=== PATIENT | female | born 1940 | race Caucasian/White ===

== ENCOUNTER 2018-08-23 13:07 | Inpatient (IN) ==
--- NOTE | 2018-08-23 13:58 | Emergency Department Note ---
Disposition Clinical Impression: Hypoglycemia, Bradycardia, Altered level of consciousness Diabetes Qualifiers: Diabetes mellitus type: type 2 Diabetes mellitus skilled nursing insulin use: with flakeboard line tender use Diabetes mellitus complication status: with other specified complication Qualified Code(s): E11.69 - Type 2 diabetes mellitus with other specified complication Hypothermia Qualifiers: Encounter type: initial encounter Qualified Code(s): T68.XXXA - Hypothermia, initial encounter Disposition: Admitted As Inpatient Condition: Fair Referrals: Portillo Mcmanus MD [Primary Care Provider] - Forms: ED Satisfaction Letter, Work/School Release Time of Disposition: 16:21 General Adult HPI - General Chief complaint: ED General Medical Stated complaint: low blood sugar Time Seen by Provider: 08/23/18 13:10 Nursing Notes Reviewed: Yes Vital Signs Reviewed: Yes - History of Present Illness HPI Narrative: I did see the patient immediately upon arrival and also spoke with the paramedics and the patient was found on her floor at home with a low blood sugar and the paramedics were called when one of her children went to check on her. She is not able to give an adequate history secondary to her altered level of consciousness. She does not know exactly how she got on the floor. She thinks she fell. She denies any pain in the head, neck, chest, abdomen or back. Social history: Is here by self, states lives with her was not home at this time because he is a manager truck Pain Scale: 0 - Related Data Home Medications Medication Instructions Recorded Confirmed Aspirin 81 mg PO DAILY 02/10/16 02/10/16 Cholecalciferol (Vitamin D3) 2,000 unit PO DAILY 02/10/16 02/10/16 [Vitamin D3] Clopidogrel [Plavix] 75 mg PO DAILY 02/10/16 02/10/16 Furosemide [Lasix] 40 mg PO DAILY 02/10/16 02/10/16 Glucagon,Human Recombinant 1 mg IJ ONCE PRN 02/10/16 02/10/16 [Glucagon Emergency Kit] Glucosamine/D3/Boswellia Harriet 1 each PO DAILY 02/10/16 02/10/16 [Osteo Bi-Flex Tablet] Insulin ASPART [Novolog Flexpen] 10 unit SQ TIDWM 02/10/16 02/10/16 Insulin DETEMIR [Levemir Flextouch] 34 unit SQ HS 02/10/16 02/10/16 Multivitamin [Multi-Day Vitamins] 1 each PO DAILY 02/10/16 02/10/16 Previous Rx's Medication Instructions Recorded Atorvastatin [Lipitor] 80 mg PO HS 30 Days tablet 02/13/16 Isosorbide MONOnitrate (24 HR) 30 mg PO DAILY #30 tab.er.24h 02/13/16 [Imdur] Metoprolol [Lopressor] 50 mg PO BID 3 Days tablet 02/13/16 Nitroglycerin 0.4 mg SL Q5MIN PRN #3 tab.subl 02/13/16 Allergies Allergy/AdvReac Type Severity Reaction Status Date / Time No Known Allergies Allergy Verified 02/10/16 16:25 Review of Systems: Constitutional: No fever Vision: No blurred vision ENT: No rhinorrhea Respiratory: No cough Allergic: No allergies : No blood in urine GI: No blood in stool Hematologic: No bruising Dermatologic: No skin rash Musculoskeletal: No pain in the extremities Neuro: No numbness of the extremities Past Medical History - Past Medical History Medical history: Reports: DVT, diabetes, hypertension, renal disease Surgical history: Reports: cholecystectomy Psychiatric history: Reports: no psych history - Social History Smoking Status: Never smoker Smokeless Tobacco Status: No Alcohol use: Reports: none Drug use: Reports: none Physical Exam CONSTITUTIONAL: Breathing comfortably, cool to touch, does not know the day or month or year or where she is HEAD: Normocephalic; atraumatic. EYES: PERRL, no scleral icterus. NOSE: The nose is normal in appearance without rhinorrhea RESP: Normal chest excursion with respiration; breath sounds clear and equal bilaterally; no wheezes, rhonchi, or rales CARD: Regular rhythm, without murmurs, rub or gallop ABD: Non-distended; non-tender, soft,without rigidity, rebound or guarding SKIN: Normal for age and race; warm and dry; no apparent lesions NEUROLOGICAL: Cranial nerves III-XII are intact. Sensory and motor functions are intact. Strength is 5/5 for flexion and extension in all 4 extremities. Finger to nose testing is equal and normal bilaterally. - General General appearance: alert, in no apparent distress Course Vital Signs Temperature 91.3 F L 08/23/18 13:16 Pulse Rate 43 08/23/18 13:16 Respiratory Rate 16 08/23/18 13:16 Blood Pressure 166/70 08/23/18 13:16 O2 Sat by Pulse Oximetry 99 08/23/18 13:16 Temperature 94.0 F L 08/23/18 16:16 Pulse Rate 62 08/23/18 16:16 Respiratory Rate 16 08/23/18 16:16 Blood Pressure 133/55 08/23/18 16:16 O2 Sat by Pulse Oximetry 98 08/23/18 16:16 Oxygen Delivery Oxygen Delivery Room Air Medical Decision Making - MDM Narrative Medical decision making narrative: Patient's confusion is related to the hypoglycemia as well as likely has significant hypothermia and the patient will be admitted to hospital. Labs are pending. I did review her EKG showing sinus bradycardia with a rate of [address] changes. The bradycardia may be related to the hypothermia so we are warming her with warm blankets, bear hugger and we will reassess and watch closely. 1358 I did review the patient's test results. The patient did have a second episode of hypoglycemia and it was difficult to get her temperature up but we did give IV fluids. Patient will be admitted to the hospital. She does not have rhabdomyolysis based on her CPK result. She became hypoglycemic because of not eating or because of too much insulin but as she was found to floor we do not ocampo ve definitive answer on that and some of this can be further evaluated based on her blood sugar fluctuations here in the hospital. 1608 Patient did eat a peanut butter and dry sandwich and drank a glass of orange juice. The most recent temperature was 92.3 so this is improving and this was done 40 minutes ago so will be checked again. She still on the bear hugger. Warm IV fluids. I did speak with the hospitalist Dr. Perla who accepts the patient for admission and does request a chest x-ray which I will do and I will follow-up the results. The patient's heart rate has improved and it was in the 40s initially and now is 63. She is not on a beta elise medication. 1620 - Medical Records Medical records reviewed: Yes I reviewed the patient's medical records. - Lab Data Lab results reviewed: Yes I reviewed the patient's lab results. Result diagrams: 08/23/18 13:55 08/23/18 13:55 Lab Results 08/23/18 08/23/18 08/23/18 Range/Units 13:55 13:55 15:25 WBC 11.9 H (4.3-11.1) K/mcL RBC 5.12 H (3.82-4.97) M/mcL Hgb 14.9 (11.5-15.4) g/dL Hct 45.9 H (35.3-44.9) % MCV 89.6 (83.0-100.0) fL MCH 29.1 (28.0-33.3) pg MCHC 32.5 (31.6-35.5) g/dL RDW 13.5 (11.5-14.5) % Plt Count 295 (140-400) K/mcL MPV 9.2 L (9.4-12.4) fL Sodium 140 (136-145) mEq/L Potassium 3.6 (3.5-5.1) mEq/L Chloride 105 (98-107) mEq/L Carbon Dioxide 28 (23-29) mEq/L BUN 38 H (8-23) mg/dL Creatinine 1.53 H (0.60-1.20) mg/dL Est GFR ( Amer) 40 L (> 60) Est GFR (Non-Af Amer) 33 L (> 60) BUN/Creatinine Ratio 25 (6-26) Glucose 68 L (70-105) mg/dL Calculated Osmolality 297 (280-300) Calcium 10.8 H (8.6-10.3) mg/dL Creatine Kinase 165 (30-223) Units/L Urine Color Yellow (Yellow) Urine Clarity Clear (Clear) Urine pH 7.0 (5.0-8.0) pH Units Ur Specific [place] 1.025 (1.010-1.025) Urine Protein >=300 H (Neg-Trace) mg/dL Urine Glucose (UA) Normal (Normal) mg/dL Urine Ketones Negative (Negative) mg/dL Urine Blood Small H (Negative) Urine Nitrite Negative (Negative) Urine Bilirubin Negative (Negative) Urine Urobilinogen Normal (Normal) mg/dL Ur Leukocyte Esterase Negative (Negative) Urine Microscopic RBC 0-3 (0-3) per hpf Urine Microscopic WBC 0-3 (0-3) per hpf Ur Squamous Epith Cells Many H (None-Few) per lpf Urine Bacteria Many H (None-Few) per hpf Hyaline Casts None Seen (None-Few) per lpf - Radiology Data Radiology results reviewed: Yes I reviewed the patient's radiology results.
[2018-08-23 14:19] LABS: Hematocrit 45.9 % (35.3-44.9); Hemoglobin 14.9 g/dL (11.5-15.4); Mean Corpuscular HGB Conc 32.5 g/dL (31.6-35.5); Mean Corpuscular Hemoglobin 29.1 pg (28.0-33.3); Mean Corpuscular Volume 89.6 fL (83.0-100.0); Mean Platelet Volume 9.2 fL (9.4-12.4); Platelet Count 295 K/mcL (140-400); Red Blood Count 5.12 M/mcL (3.82-4.97); Red Cell Distribution Width 13.5 % (11.5-14.5); White Blood Count 11.9 K/mcL (4.3-11.1)
[2018-08-23 14:28] LABS: Calcium 10.8 mg/dL (8.6-10.3); Potassium 3.6 mEq/L (3.5-5.1)
[2018-08-23] MEDS ORDERED: 0.9 % Sodium Chloride 1,000 ML IVC ONE (14:51)
[2018-08-23 15:32] LABS: Bilirubin,Urine Negative (Negative); Blood,Urine Small (Negative); Clarity,Urine Clear (Clear); Color,Urine Yellow (Yellow); Glucose,Urine (UA) Normal (Normal); Ketones,Urine Negative (Negative); Leukocyte Esterase,Urine Negative (Negative); Nitrite,Urine Negative (Negative); Protein,Urine >=300 mg/dL (Neg-Trace); Specific Gravity,Urine 1.025 (1.010-1.025); Urobilinogen,Urine Normal (Normal)
[2018-08-23 15:52] LABS: Bacteria,Urine Many per hpf (None-Few); Hyaline Casts,Urine None Seen per lpf (None-Few); RBC,Urine 0-3 per hpf (0-3); Squamous Epithelial Cell,Urine Many per lpf (None-Few); WBC,Urine 0-3 per hpf (0-3)
[2018-08-23] MEDS ORDERED: Naloxone 0.4 MG/ML INJ IVP PRN (17:09)
[2018-08-23] MEDS ORDERED: Ondansetron 4 MG/2 ML VIAL IVP PRN (17:09)
--- NOTE | 2018-08-23 17:12 | Internal Med History&Physical ---
Date of Encounter: 08/23/18 Time of Encounter: 17:08 Internal Medicine - H&P: HPI Chief complaint: AMS,HYPOGLYCEMIA Admitted From: Emergency Dept Plans for Post Hospital Care: Home History of present illness: Ms. 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 Some noticed that patient was not making much sense on phone therefore he hung up and drove to mother's house where she was found on the floor with altered sensorium and confusion. He checked blood glucose level and found in the lower 40s therefore he gave 1 dose of glucagon and called EMS. EMS checked blood glucose level and found in 70s. In ER patient was also found to be hypothermic with temperature 91.3 and a started on bear hugger. Patient was also found to be bradycardia heart rate and 40s and eventually started to improve in 60s when temperature is started to improve. Her blood glucose level also started to improve and patient mental status is started to improve it is still feeling tired and slight slow in response. Initial lab with mild leukocytosis and high BUN otherwise not much significant. CT head with no acute finding. Fluid resuscitation was done in t ER. ER physician called on-call hospitalists for the admission with the diagnosis of hypoglycemia, bradycardia and hypothermia. Patient denies fever chills nausea vomiting headache dizziness chest pain shortness of breath cough abdominal pain diarrhea urinary complaint. She does complain of fatigue generalized weakness. She also denies hematemesis melena hemoptysis hematochezia. Patient does complain of recurrent fall and has been getting physiotherapy at home arranged by her primary care physician. Family is willing to talk with social service worker about possible placement Past Med Surg Social Fam HX - Past Medical History Medical history: DVT, diabetes, hypertension, renal disease Additional medical history: tremors, Renal carcinoma. chronic renal insufficiency related to nephroctomy Psychiatric history: no psych history - Past Surgical History Surgical History: cholecystectomy Additional surgical history: nephrectomy- LEFT - Social History Smoking Status: Never smoker Smokeless Tobacco Status: No Alcohol use: none Drug use: none - Family History Father Hx Family Cardiac Disorders: Yes (HEART DISEASE) Internal Medicine - H&P: Meds Aspirin 81 mg PO DAILY 02/10/16 [History] Clopidogrel [Plavix] 75 mg PO DAILY 02/10/16 [History] Furosemide [Lasix] 40 mg PO DAILY 02/10/16 [History] Glucosamine/D3/Boswellia Harriet [Osteo Bi-Flex Tablet] 1 each PO DAILY 02/10/16 [History] Insulin ASPART [Novolog Flexpen] 10 unit SQ TIDWM 02/10/16 [History] Insulin DETEMIR [Levemir Flextouch] 34 unit SQ HS 02/10/16 [History] Isosorbide MONOnitrate (24 HR) [Imdur] 30 mg PO DAILY #30 tab.er.24h 02/13/16 [Rx] Nitroglycerin 0.4 mg SL Q5MIN PRN #3 tab.subl 02/13/16 [Rx] Atorvastatin [Lipitor] 40 mg PO DAILY 08/23/18 [History] Calcitriol [Rocaltrol] 0.25 mcg PO DAILY 08/23/18 [History] Cholecalciferol (D-3) [Vitamin D] 1,000 unit PO DAILY 08/23/18 [History] DULoxetine [Cymbalta] 30 mg PO DAILY 08/23/18 [History] Multivitamin [Daily Multiple Vitamin] 1 each PO DAILY 08/23/18 [History] Propranolol HCl 40 mg PO BID 08/23/18 [History] Allergy/AdvReac Type Severity Reaction Status Date / Time No Known Allergies Allergy Verified 02/10/16 16:25 All Systems PM: A 10-system review of systems was performed and is negative for pertinent fin dings except as documented above in the HPI. - Constitutional Vitals: Temp Pulse Resp BP Pulse Ox 94.0 F L 62 16 133/55 98 08/23/18 16:16 08/23/18 16:16 08/23/18 16:16 08/23/18 16:16 08/23/18 16:16 Exam: General appearance: No acute distress, alert awake oriented to place person and somewhat time-baseline as per family. Family at bedside. Patient appeared pale and tired Head exam: Atraumatic Eye exam: EOMI, PERRLA ENT exam: Moist oral mucosa Neck nontender, supple Respiratory exam: Clear to auscultation bilaterally Cardiovascular exam: Regular rate and rhythm, no systolic murmur Abdominal exam: Soft, nontender, nondistended, positive bowel sounds Extremities exam: No calf tenderness, no pedal edema Present: Skin-no rash, warm, dry, intact Neurological exam: CN II-XII intact, no focal deficits. No facial droop. Normal but slow speech. Internal Med - H&P Results - Labs CBC & Chem 7: 08/23/18 13:55 08/23/18 13:55 Labs: Short CBC 08/23/18 Range/Units 13:55 WBC 11.9 H (4.3-11.1) K/mcL Hgb 14.9 (11.5-15.4) g/dL Hct 45.9 H (35.3-44.9) % Plt Count 295 (140-400) K/mcL BMP 08/23/18 13:55 Sodium 140 Potassium 3.6 Chloride 105 Carbon Dioxide 28 BUN 38 H Creatinine 1.53 H Glucose 68 L Calcium 10.8 H Urine 08/23/18 Range/Units 15:25 Urine Color Yellow (Yellow) Urine Clarity Clear (Clear) Urine pH 7.0 (5.0-8.0) pH Units Ur Specific [place] 1.025 (1.010-1.025) Urine Protein >=300 H (Neg-Trace) mg/dL Urine Glucose (UA) Normal (Normal) mg/dL - Impressions ITS Impressions Head CT 08/23/18 13:58 IMPRESSION: No acute intracranial abnormality. Mild atrophy and chronic white matter changes consistent with small vessel ischemic disease. D/ / Hillary Ramon MD / Hillary Ramon MD Interpreting Provider: Hillary Ramon MD Chest X-Ray 08/23/18 16:11 IMPRESSION: 1. Likely left basilar subsegmental atelectasis versus scarring. 2. Mild enlargement of the cardiopericardial silhouette, likely exaggerated on the basis of AP portable technique. D/ / Murphy Peace / Murphy Peace Interpreting Provider: Murphy Peace - Assessment and Plan (1) Altered level of consciousness Current Visit: Yes Status: Acute Assessment and plan: Improving and almost back to baseline but is still slow. No focal neurological deficit. Most likely due to hypoglycemia. Neuro check. Fall precaution. CT head with no acute finding. (2) Bradycardia Current Visit: Yes Status: Acute Assessment and plan: Could be due to hypothermia. Now improving heart rate. EKG with no acute ST finding. Will order echocardiogram to rule out underlying contributing cardiac factor. Serial troponin. Keep patient in telemetry. Consult cardiology if needed. Hold beta elise for now. IV fluid given in the ER. Last echocardiogram in 2016. (3) Hypoglycemia Current Visit: Yes Status: Acute Assessment and plan: Patient has a history of fluctuating blood glucose level therefore following teacher early childhood development. She had episode of low blood glucose level but not significantly. Patient did not miss any insulin dose but did not eat much food today. Fasting blood glucose level was around 130s today morning. No blood glucose level is improving but is still needs close monitoring. Accu-Chek every 2 hours, hypoglycemia protocol, regular diet. No insulin or sliding scale coverage until persistent blood glucose level more than 150. (4) Leucocytosis Current Visit: Yes Status: Acute Assessment and plan: Mild leukocytosis but no fever. Patient also has hypothermia but denies any systemic sign and symptom. Concern for sepsis but lactate is normal. Blood culture ordered. Will also order pro calcitonin. Will start antibiotic if any concern of infection. Chest x-ray IMPRESSION: 1. Likely left basilar subsegmental atelectasis versus scarring. 2. Mild enlargement of the cardiopericardial silhouette, likely exaggerated on the basis of AP portable technique. Qualifiers: Leukocytosis type: unspecified Qualified Code(s): D72.829 - Elevated white blood cell count, unspecified (5) Diabetes Current Visit: Yes Status: Acute Assessment and plan: Uncontrolled diabetes as per patient with fluctuating blood glucose level. Following teacher early childhood development. Hemoglobin A1c ordered. No insulin coverage ordered at this time Qualifiers: Diabetes mellitus type: type 2 Diabetes mellitus residential insulin use: with residential use Diabetes mellitus complication status: with kidney complications Chronic kidney disease stage: stage 4 (severe) Qualified Code(s): E11.22 - Type 2 diabetes mellitus with diabetic chronic kidney disease; N18.4 - Chronic kidney disease, stage 4 (severe); Z79.4 - senior care (current) use of insulin (6) Hypothermia Current Visit: Yes Status: Acute Assessment and plan: Unknown etiology. Temperature is improving on bear hugger. She presented with low temperature, bradycardia with mild leukocytosis therefore lactate order with normal finding . Qualifiers: Encounter type: initial encounter Qualified Code(s): T68.XXXA - Hypothermia, initial encounter (7) LENNY (obstructive sleep apnea) Current Visit: No Status: Acute Assessment and plan: Does not wear CPAP. (8) Renal malignant neoplasm Current Visit: No Status: Acute Assessment and plan: Status post questionable left nephrectomy. Qualifiers: Laterality: unspecified laterality Qualified Code(s): C64.9 - Malignant neoplasm of unspecified kidney, except renal pelvis (9) Chronic kidney disease, stage IV (severe) Current Visit: No Status: Chronic Assessment and plan: Baseline creatinine between 1.5-1.6. Avoid nephrotoxic drug. Patient follows nephrology on OPD basis. Monitor BMP. (10) Fall Current Visit: Yes Status: Acute Assessment and plan: History of recurrent fall. At present physiotherapy at home. Consulted PT OT and social service worker for discharge plan. Recent fall 1 week ago but did not hit head. Qualifiers: Encounter type: subsequent encounter Qualified Code(s): W19.XXXD - Unspecified fall, subsequent encounter (11) CAD (coronary artery disease) Current Visit: Yes Status: Acute Assessment and plan: History of CAD but no active chest pain. Patient had heart catheter almost 4 years ago but no stent placed. Advise for medical management as per patient and family Qualifiers: Coronary Disease-Associated Artery/Lesion type: unspecified vessel or lesion type [place] vs. transplanted heart: [place] heart Associated angina: without angina Qualified Code(s): I25.10 - Atherosclerotic heart disease of [place] coronary artery without angina pectoris (12) DVT prophylaxis Current Visit: Yes Status: Acute Assessment and plan: SCDs - Time Spent With Patient Total time spent is greater than 50% in coordination of care (as documented) at patient's floor/unit and/or counseling patient: 25 - 35 minutes
[2018-08-23] MEDS ORDERED: Nitroglycerin 0.4 MG TAB.SUBL SL PRN (17:15)
[2018-08-23 17:53] LABS: Prothrombin Time 11.7 Seconds (9.4-12.1)
[2018-08-23 18:31] LABS: Estimated Average Glucose 212 mg/dl
[2018-08-24 05:51] LABS: Basophils % 0.3 %; Eosinophils # 0.1 K/mcL (0.0-0.6); Eosinophils % 2.1 %; Hematocrit 40.9 % (35.3-44.9); Immature Granulocytes % 0.3 % (0-4); Lymphocytes # 1.5 K/mcL (0.6-4.6); Lymphocytes % 21.6 %; Mean Corpuscular HGB Conc 31.5 g/dL (31.6-35.5); Mean Corpuscular Hemoglobin 27.9 pg (28.0-33.3); Mean Corpuscular Volume 88.5 fL (83.0-100.0); Mean Platelet Volume 9.1 fL (9.4-12.4); Monocytes # 0.7 K/mcL (0.0-1.3); Monocytes % 10.3 %; Neutrophils # 4.4 K/mcL (1.6-8.9); Platelet Count 279 K/mcL (140-400); Red Blood Count 4.62 M/mcL (3.82-4.97); Red Cell Distribution Width 13.4 % (11.5-14.5); Segmented Neutrophils % 65.4 %; White Blood Count 6.7 K/mcL (4.3-11.1)
[2018-08-24 05:54] LABS: Hemoglobin 12.9 g/dL (11.5-15.4)
[2018-08-24 06:12] LABS: Calcium 9.6 mg/dL (8.6-10.3); Chol/HDL Ratio 3.6 (0-4.9); Potassium 4.4 mEq/L (3.5-5.1)
[2018-08-24] MEDS ORDERED: *HR* Dextrose 50 % in Water (Syg) 50 ML SYRINGE IVP PRN (07:22)
[2018-08-24] MEDS ORDERED: D5% in Water 1,000 ML IVC PRN (07:22)
[2018-08-24] MEDS ORDERED: Dextrose Gel 15 GM/37.5 ML TUBE PO PRN ×2 (07:22)
[2018-08-24] MEDS ORDERED: NON-FORMULARY MEDICATION 1 EACH EACH (Insulin Aspart [Novolog Flexpen] 10 UNIT) SQ SCH (08:00)
[2018-08-24] MEDS: Insulin LISPRO 300 UNITS/3 ML VIAL SQ SCH ×7 (08:59→22:58)
[2018-08-24] MEDS: Isosorbide MONOnitrate (24 HR) 30 MG TAB.ER.24H PO SCH (09:00)
[2018-08-24] MEDS: Cholecalciferol (D-3) 1,000 UNIT TABLET PO SCH (09:00)
[2018-08-24] MEDS: Aspirin 81 MG TAB.CHEW PO SCH (09:00)
[2018-08-24] MEDS: Multivit/Ca/Min/Fe/FA 1 TAB TABLET PO SCH (09:00)
--- NOTE | 2018-08-24 10:02 | Internal Med Progress Note ---
Hospitalist Progress Note - Encounter Date of Encounter: 08/24/18 Time of Encounter: 10:01 - Subjective Interval History: Patient is still complaining of tiredness and weakness. No episode of hypoglycemia in fact now blood glucose level is running high. Review of the vitals with no bradycardia and normal temperature. Son at bedside. Review the lab with normal white count, crit came up creatinine. Patient denies fever chills nausea vomiting headache dizziness chest pain shortness of breath abdominal pain urinary complaint diarrhea - Exam Vitals: Temp Pulse Resp BP Pulse Ox 98.1 F 79 16 175/69 96 08/24/18 07:20 08/24/18 07:20 08/24/18 07:20 08/24/18 07:20 08/24/18 07:20 Exam: General appearance: No acute distress, alert awake oriented to place person and somewhat time-baseline as per family. Family at bedside. Patient goes to bathroom with assistance Head exam: Atraumatic Eye exam: EOMI, PERRLA ENT exam: Moist oral mucosa Neck nontender, supple Respiratory exam: Clear to auscultation bilaterally Cardiovascular exam: Regular rate and rhythm, no systolic murmur Abdominal exam: Soft, nontender, nondistended, positive bowel sounds Extremities exam: No calf tenderness, no pedal edema Present: Skin-no rash, warm, dry, intact Neurological exam: CN II-XII intact, no focal deficits. No facial droop. Normal speech. - Assessment and Plan (1) Altered level of consciousness Current Visit: Yes Status: Acute Assessment and Plan: Improving and almost back to baseline but is still slow. No focal neurological deficit. Most likely due to hypoglycemia. Neuro check. Fall precaution. CT head with no acute finding. (2) Bradycardia Current Visit: Yes Status: Acute Assessment and Plan: Improved P Could be due to hypothermia. Now improving heart rate. EKG with no acute ST finding. Negative Serial troponin. Keep patient in telemetry. Consult cardiology if needed. Hold beta elise for now. IV fluid given in the ER. Last echocardiogram in 2016. Echocardiogram report- Impressions: LVEF 55-60%. Moderate concentric left ventricular hypertrophy. Moderate left ventricular diastolic dysfunction. The right ventricle was not well visualized but appeared grossly normal in size and function Mild-moderate mitral regurgitation. No evidence of pulmonary hypertension. Left Ventricular Wall Motion: Rest Echo Findings All wall segments showed normal motion. (3) Hypoglycemia Current Visit: Yes Status: Acute Assessment and Plan: Improved. Blood glucose level running high. Patient has a history of fluctuating blood glucose level therefore following tobacco sweeper. She had episode of low blood glucose level but not significantly. Patient did not miss any insulin dose but did not eat much food on the day of admission. (4) Leucocytosis Current Visit: Yes Status: Acute Assessment and Plan: Improved. Mild leukocytosis but no fever. On admission patient had hypothermia but denies any systemic sign and symptom. Concern for sepsis but lactate is normal. Blood culture with no growth. Slight high pro calcitonin. No antibiotic at this time as patient does not appear in sepsis but equivocal lab Chest x-ray IMPRESSION: 1. Likely left basilar subsegmental atelectasis versus scarring. 2. Mild enlargement of the cardiopericardial silhouette, likely exaggerated on the basis of AP portable technique. (5) Diabetes Current Visit: Yes Status: Acute Assessment and Plan: Uncontrolled diabetes as per patient with fluctuating blood glucose level. Following tobacco sweeper. Hemoglobin A1c 9.0. Diabetic diet. Now blood glucose level running high therefore the lower dose of home insulin is started R 20 units daily at bedtime, 10 units Humalog 3 times a day with meal. Low sliding scale coverage. still need close monitoring of blood glucose level. (6) Hypothermia Current Visit: Yes Status: Acute Assessment and Plan: Unknown etiology. Normal body temperature now. In ER used bear hugger. She presented with low temperature, bradycardia with mild leukocytosis (7) LENNY (obstructive sleep apnea) Current Visit: No Status: Acute Assessment and Plan: Does not wear CPAP. (8) Renal malignant neoplasm Current Visit: No Status: Acute Assessment and Plan: Status post questionable left nephrectomy. (9) Chronic kidney disease, stage IV (severe) Current Visit: No Status: Chronic Assessment and Plan: Baseline creatinine between 1.5-1.6. Avoid nephrotoxic drug. Patient follows nephrology on OPD basis. Monitor BMP. (10) Fall Current Visit: Yes Status: Acute Assessment and Plan: History of recurrent fall. At present physiotherapy at home. Consulted PT OT and social work administrator for discharge plan. Recent fall 1 week ago but did not hit head. (11) CAD (coronary artery disease) Current Visit: Yes Status: Acute Assessment and Plan: History of CAD but no active chest pain. Patient had heart catheter almost 4 years ago but no stent placed. Advise for medical management as per patient and family (12) DVT prophylaxis Current Visit: Yes Status: Acute Assessment and Plan: SCDs (13) JULIOCESAR (acute kidney injury) Current Visit: Yes Status: Acute Assessment and Plan: Acute on CK D. Trending up creatinine level. Gentle hydration started. Patient does not appear in volume overloaded. Avoid nephrotoxic drug. Will consult nephrology if needed. (14) Goals of care, counseling/discussion Current Visit: Yes Status: Acute Assessment and Plan: Patient presented with hypothermia, bradycardia, hypoglycemia-improving symptoms but today worsening of creatinine level. Patient still needs close monitoring for 1-2 days. PT OT on board and awaiting for the opinion about placement.. - Time Spent with Patient Total time spent is greater than 50% in coordination of care (as documented) at patient's floor/unit and/or counseling patient: 25 - 35 minutes Plan of Care Discussed with: family Internal Medicine: Result - Labs CBC & Chem 7: 08/24/18 05:29 08/24/18 05:29 Labs: Short CBC 08/23/18 08/24/18 Range/Units 13:55 05:29 WBC 11.9 H 6.7 (4.3-11.1) K/mcL Hgb 14.9 12.9 D (11.5-15.4) g/dL Hct 45.9 H 40.9 (35.3-44.9) % Plt Count 295 279 (140-400) K/mcL Neutrophils # 4.4 (1.6-8.9) K/mcL BMP 08/23/18 08/24/18 13:55 05:29 Sodium 140 139 Potassium 3.6 4.4 Chloride 105 104 Carbon Dioxide 28 29 BUN 38 H 35 H Creatinine 1.53 H 1.74 H Glucose 68 L 289 H Calcium 10.8 H 9.6 Cardiac Enzymes 08/23/18 08/23/18 Range/Units 17:33 22:59 Troponin I < 0.03 < 0.03 (< 0.04) ng/mL Urine 08/23/18 Range/Units 15:25 Urine Color Yellow (Yellow) Urine Clarity Clear (Clear) Urine pH 7.0 (5.0-8.0) pH Units Ur Specific [place] 1.025 (1.010-1.025) Urine Protein >=300 H (Neg-Trace) mg/dL Urine Glucose (UA) Normal (Normal) mg/dL - ABG Interpretation ABG results: PT/INR, D-dimer PT 11.7 Seconds (9.4-12.1) 08/23/18 17:33 - Impressions Impressions Head CT 08/23/18 13:58 IMPRESSION: No acute intracranial abnormality. Mild atrophy and chronic white matter changes consistent with small vessel ischemic disease. D/ / Hillary Ramon MD / Hillary Ramon MD Interpreting Provider: Hillary Ramon MD Chest X-Ray 08/23/18 16:11 IMPRESSION: 1. Likely left basilar subsegmental atelectasis versus scarring. 2. Mild enlargement of the cardiopericardial silhouette, likely exaggerated on the basis of AP portable technique. D/ / Murphy Peace / Murphy Peace Interpreting Provider: Murphy Peace Consult Discharge Plan - Plan Referrals: Portillo Mcmanus MD [Primary Care Provider] - (4) Leucocytosis Qualifiers: Leukocytosis type: unspecified Qualified Code(s): D72.829 - Elevated white blood cell count, unspecified (5) Diabetes Qualifiers: Diabetes mellitus type: type 2 Diabetes mellitus residential insulin use: with residential use Diabetes mellitus complication status: with kidney complications Chronic kidney disease stage: stage 4 (severe) (6) Hypothermia Qualifiers: Encounter type: initial encounter Qualified Code(s): T68.XXXA - Hypothermia, initial encounter (8) Renal malignant neoplasm Qualifiers: Laterality: unspecified laterality Qualified Code(s): C64.9 - Malignant neoplasm of unspecified kidney, except renal pelvis (10) Fall Qualifiers: Encounter type: subsequent encounter Qualified Code(s): W19.XXXD - Unspecified fall, subsequent encounter (11) CAD (coronary artery disease) Qualifiers: Coronary Disease-Associated Artery/Lesion type: unspecified vessel or lesion type [place] vs. transplanted heart: [place] heart Associated angina: without angina Qualified Code(s): I25.10 - Atherosclerotic heart disease of [place] coronary artery without angina pectoris
[2018-08-24] MEDS: 0.9 % Sodium Chloride 1,000 ML IVC SCH (15:31)
--- NOTE | 2018-08-24 16:47 | Electrocardiograph Report ---
[place] [address] Test Date: 2018-08-23 Pat Name: Trisha Marcano Department: EXAM8 Room: 2NE19 Gender: F [facility] Information Specialist: : 1940 Requested By: Fernando Tran Order Number: [id number] Reading MD: Katey Rob Measurements Intervals [place] Rate: 43 P: -12 [place]: 129 QRS: -15 QRSD: 128 T: 1 QT: 538 QTc: 455 Interpretive Statements Sinus bradycardia Probable left ventricular hypertrophy Nonspecific ST-T wave changes Electronically Signed On 08-24-2018 16:45:45 EDT by Katey Rob
[2018-08-24] MEDS ORDERED: NON-FORMULARY MEDICATION 1 EACH EACH (Insulin Detemir [Levemir Flextouch] 20 UNIT) SQ SCH (21:00)
[2018-08-24] MEDS: Insulin DETEMIR 100 UNIT/ML X5UNITS SQ SCH (22:59)
[2018-08-25 01:18] LABS: Basophils % 0.5 %; Eosinophils # 0.2 K/mcL (0.0-0.6); Hemoglobin 12.4 g/dL (11.5-15.4); Immature Granulocytes % 0.3 % (0-4); Mean Corpuscular HGB Conc 31.8 g/dL (31.6-35.5); Mean Corpuscular Hemoglobin 28.1 pg (28.0-33.3); Mean Corpuscular Volume 88.2 fL (83.0-100.0); Mean Platelet Volume 9.2 fL (9.4-12.4); Monocytes # 0.6 K/mcL (0.0-1.3); Monocytes % 10.2 %; Neutrophils # 3.4 K/mcL (1.6-8.9); Platelet Count 263 K/mcL (140-400); Red Blood Count 4.42 M/mcL (3.82-4.97); Red Cell Distribution Width 13.5 % (11.5-14.5); White Blood Count 6.3 K/mcL (4.3-11.1)
[2018-08-25 01:35] LABS: Calcium 8.9 mg/dL (8.6-10.3); Potassium 4.2 mEq/L (3.5-5.1)
[2018-08-25] MEDS: 0.9 % Sodium Chloride 1,000 ML IVC SCH ×2 (05:51→20:02)
[2018-08-25] MEDS: Cholecalciferol (D-3) 1,000 UNIT TABLET PO SCH (08:50)
[2018-08-25] MEDS: Multivit/Ca/Min/Fe/FA 1 TAB TABLET PO SCH (08:51)
[2018-08-25] MEDS: Isosorbide MONOnitrate (24 HR) 30 MG TAB.ER.24H PO SCH (08:51)
[2018-08-25] MEDS: Aspirin 81 MG TAB.CHEW PO SCH (08:51)
[2018-08-25] MEDS: Insulin LISPRO 300 UNITS/3 ML VIAL SQ SCH ×7 (08:56→21:17)
--- NOTE | 2018-08-25 10:24 | Internal Med Progress Note ---
Hospitalist Progress Note - Encounter Date of Encounter: 08/25/18 Time of Encounter: 10:22 - Subjective Interval History: No acute event overnight. Family at bedside. Review the lab with normal white count. Is stable but is still elevated creatinine. Blood glucose level better controlled. Review the vitals. Patient denies fever chills nausea vomiting headache dizziness chest pain cough shortness of breath abdominal pain urinary complaint diarrhea - Exam Vitals: Temp Pulse Resp BP Pulse Ox 97.9 F 81 18 134/58 94 08/25/18 07:16 08/25/18 07:16 08/25/18 07:16 08/25/18 07:16 08/25/18 07:16 Exam: General appearance: No acute distress, alert awake oriented to place person and somewhat time-baseline as per family. Family at bedside. Eye exam: EOMI, PERRLA ENT exam: Moist oral mucosa Neck nontender, supple Respiratory exam: Clear to auscultation bilaterally Cardiovascular exam: Regular rate and rhythm, no systolic murmur Abdominal exam: Soft, nontender, nondistended, positive bowel sounds Extremities exam: No calf tenderness, no pedal edema Present: Skin-no rash, warm, dry, intact Neurological exam: CN II-XII intact, no focal deficits. No facial droop. Normal speech. - Assessment and Plan (1) Altered level of consciousness Current Visit: Yes Status: Acute Assessment and Plan: Improving and almost back to baseline . No focal neurological deficit. Most likely due to hypoglycemia. Neuro check. Fall precaution. CT head with no acute finding. (2) Bradycardia Current Visit: Yes Status: Acute Assessment and Plan: Improved. Could be due to hypothermia. Now improving heart rate. EKG with no acute ST finding. Negative Serial troponin. Keep patient in telemetry. Consult cardiology if needed. Hold beta elise for now. IV fluid given in the ER. Last echocardiogram in 2016. Echocardiogram report-during this admission Impressions: LVEF 55-60%. Moderate concentric left ventricular hypertrophy. Moderate left ventricular diastolic dysfunction. The right ventricle was not well visualized but appeared grossly normal in size and function Mild-moderate mitral regurgitation. No evidence of pulmonary hypertension. Left Ventricular Wall Motion: Rest Echo Findings All wall segments showed normal motion. (3) Hypoglycemia Current Visit: Yes Status: Acute Assessment and Plan: Improved. Blood glucose level at her control. started lower dose of home insulin. Hemoglobin A1c 9.0. Follow with implementation lead upon discharge. Patient has a history of fluctuating blood glucose level therefore following implementation lead. (4) Leucocytosis Current Visit: Yes Status: Acute Assessment and Plan: Improved. Mild leukocytosis but no fever. On admission patient had hypothermia but denies any systemic sign and symptom. Concern for sepsis but lactate is normal. Blood culture with no growth. Slight high pro calcitonin. No antibiotic at this time as patient does not appear in sepsis . Chest x-ray IMPRESSION: 1. Likely left basilar subsegmental atelectasis versus scarring. 2. Mild enlargement of the cardiopericardial silhouette, likely exaggerated on the basis of AP portable technique. (5) Diabetes Current Visit: Yes Status: Acute Assessment and Plan: Uncontrolled diabetes as per patient with fluctuating blood glucose level. Following implementation lead. Hemoglobin A1c 9.0. Diabetic diet. Now blood glucose level running high therefore the lower dose of home insulin is started R 20 units daily at bedtime, 10 units Humalog 3 times a day with meal. Low sliding scale coverage. (6) Hypothermia Current Visit: Yes Status: Acute Assessment and Plan: Improved. Unknown etiology. Normal body temperature now. In ER used bear hugger. She presented with low temperature, bradycardia with mild leukocytosis (7) LENNY (obstructive sleep apnea) Current Visit: No Status: Acute Assessment and Plan: Does not wear CPAP. (8) Renal malignant neoplasm Current Visit: No Status: Acute Assessment and Plan: Status post questionable left nephrectomy. (9) Chronic kidney disease, stage IV (severe) Current Visit: No Status: Chronic Assessment and Plan: Baseline creatinine between 1.5-1.6. Avoid nephrotoxic drug. Patient follows nephrology on OPD basis. Monitor BMP. (10) Fall Current Visit: Yes Status: Acute Assessment and Plan: History of recurrent fall. At present physiotherapy at home. Consulted PT OT and social media content manager for discharge plan. Recent fall 1 week ago but did not hit head. (11) CAD (coronary artery disease) Current Visit: Yes Status: Acute Assessment and Plan: History of CAD but no active chest pain. Patient had heart catheter almost 4 years ago but no stent placed. Advise for medical management as per patient and family (12) DVT prophylaxis Current Visit: Yes Status: Acute Assessment and Plan: SCDs (13) JULIOCESAR (acute kidney injury) Current Visit: Yes Status: Acute Assessment and Plan: Acute on CK D. Gentle hydration started. Patient does not appear in volume overloaded. Avoid nephrotoxic drug. Will consult nephrology if needed. (14) Goals of care, counseling/discussion Current Visit: Yes Status: Acute Assessment and Plan: PT OT on board and recommended for inpatient rehabilitation. scrap worker on board for placement and will be possible after the weekend possibly on Monday. - Time Spent with Patient Total time spent is greater than 50% in coordination of care (as documented) at patient's floor/unit and/or counseling patient: 25 - 35 minutes Plan of Care Discussed with: patient Internal Medicine: Result - Labs CBC & Chem 7: 08/25/18 00:34 08/25/18 00:34 Labs: Short CBC 08/25/18 Range/Units 00:34 WBC 6.3 (4.3-11.1) K/mcL Hgb 12.4 (11.5-15.4) g/dL Hct 39.0 (35.3-44.9) % Plt Count 263 (140-400) K/mcL Neutrophils # 3.4 (1.6-8.9) K/mcL BMP 08/25/18 00:34 Sodium 141 Potassium 4.2 Chloride 105 Carbon Dioxide 27 BUN 37 H Creatinine 1.74 H Glucose 123 H Calcium 8.9 - ABG Interpretation ABG results: PT/INR, D-dimer PT 11.7 Seconds (9.4-12.1) 08/23/18 17:33 - Impressions Impressions Echocardiogram 08/24/18 17:50 Impressions: LVEF 55-60%. Moderate concentric left ventricular hypertrophy. Moderate left ventricular diastolic dysfunction. The right ventricle was not well visualized but appeared grossly normal in size and function Mild-moderate mitral regurgitation. No evidence of pulmonary hypertension. Left Ventricular Wall Motion: Rest Echo Findings All wall segments showed normal motion. Findings: Study Quality * Technically adequate exam. ECG Findings * Sinus rhythm with BBB. Left Ventricle * LVEF 55-60%. * Moderate concentric left ventricular hypertrophy. * Moderate left ventricular diastolic dysfunction. * Atypical septal motion consistent with bundle branch block. * Normal LV chamber size Right Ventricle * The right ventricle was not well visualized but appeared grossly normal in size and function Left Atrium * Normal left atrial size. Right Atrium * Normal right atrial size. Aortic Valve * Trileaflet aortic valve. * No aortic regurgitation. * No aortic stenosis. * Normal aortic valve structure. Mitral Valve * Moderate mitral annular calcification * Mild-moderate mitral regurgitation. * No mitral stenosis. Tricuspid Valve * Trace tricuspid regurgitation. * No evidence of pulmonary hypertension. * No tricuspid stenosis. * Normal tricuspid valve structure. Pulmonic Valve * Pulmonic valve not well visualized. Aorta * Normally sized aortic root. Pericardium * The pericardium appears normal. IVC * Normal IVC dimensions and inspiratory collapse. Pulmonary Artery * Pulmonary artery not well visualized. Consult Discharge Plan - Plan Referrals: Portillo Mcmanus MD [Primary Care Provider] - (4) Leucocytosis Qualifiers: Leukocytosis type: unspecified Qualified Code(s): D72.829 - Elevated white blood cell count, unspecified (5) Diabetes Qualifiers: Diabetes mellitus type: type 2 Diabetes mellitus [facility] insulin use: with [facility] use Diabetes mellitus complication status: with kidney complications Chronic kidney disease stage: stage 4 (severe) (6) Hypothermia Qualifiers: Encounter type: initial encounter Qualified Code(s): T68.XXXA - Hypothermia, initial encounter (8) Renal malignant neoplasm Qualifiers: Laterality: unspecified laterality Qualified Code(s): C64.9 - Malignant neop lasm of unspecified kidney, except renal pelvis (10) Fall Qualifiers: Encounter type: subsequent encounter Qualified Code(s): W19.XXXD - Unspec ified fall, subsequent encounter (11) CAD (coronary artery disease) Qualifiers: Coronary Disease-Associated Artery/Lesion type: unspecified vessel or lesion type [place] vs. transplanted heart: [place] heart Associated angina: without angina Qualified Code(s): I25.10 - Atherosclerotic heart disease of [place] coronary artery without angina pectoris
[2018-08-25] MEDS: Insulin DETEMIR 100 UNIT/ML X5UNITS SQ SCH (21:16)
[2018-08-26 03:33] LABS: White Blood Count 6.5 K/mcL (4.3-11.1)
[2018-08-26 03:34] LABS: Basophils % 0.3 %; Eosinophils # 0.2 K/mcL (0.0-0.6); Eosinophils % 3.2 %; Hematocrit 39.1 % (35.3-44.9); Hemoglobin 12.4 g/dL (11.5-15.4); Immature Granulocytes % 0.3 % (0-4); Lymphocytes # 1.8 K/mcL (0.6-4.6); Lymphocytes % 27.8 %; Mean Corpuscular HGB Conc 31.7 g/dL (31.6-35.5); Mean Corpuscular Hemoglobin 28.2 pg (28.0-33.3); Mean Corpuscular Volume 89.1 fL (83.0-100.0); Mean Platelet Volume 9.2 fL (9.4-12.4); Monocytes # 0.8 K/mcL (0.0-1.3); Monocytes % 12.1 %; Neutrophils # 3.7 K/mcL (1.6-8.9); Platelet Count 264 K/mcL (140-400); Red Blood Count 4.39 M/mcL (3.82-4.97); Red Cell Distribution Width 13.5 % (11.5-14.5); Segmented Neutrophils % 56.3 %
[2018-08-26 03:54] LABS: Calcium 8.6 mg/dL (8.6-10.3); Potassium 4.2 mEq/L (3.5-5.1)
[2018-08-26] MEDS: Insulin LISPRO 300 UNITS/3 ML VIAL SQ SCH ×7 (08:13→21:21)
[2018-08-26] MEDS: Multivit/Ca/Min/Fe/FA 1 TAB TABLET PO SCH (08:18)
[2018-08-26] MEDS: Isosorbide MONOnitrate (24 HR) 30 MG TAB.ER.24H PO SCH (08:19)
[2018-08-26] MEDS: Cholecalciferol (D-3) 1,000 UNIT TABLET PO SCH (08:19)
[2018-08-26] MEDS: Aspirin 81 MG TAB.CHEW PO SCH (08:19)
--- NOTE | 2018-08-26 09:50 | Internal Med Progress Note ---
Hospitalist Progress Note - Encounter Date of Encounter: 08/26/18 Time of Encounter: 08:50 - Subjective Interval History: No acute event overnight. Review the lab -trending down creatinine level and elevated blood glucose level. vitals with slight high blood pressure. Patient denies vomiting headache dizziness chest pain short of breath diarrhea urinary complaint - Exam Vitals: Temp Pulse Resp BP Pulse Ox 98 F 76 18 152/70 95 08/26/18 07:55 08/26/18 07:55 08/26/18 07:55 08/26/18 07:55 08/26/18 07:55 Exam: General appearance: No acute distress, alert awake oriented 3. Eye exam: EOMI, PERRLA ENT exam: Moist oral mucosa Neck nontender, supple Respiratory exam: Clear to auscultation bilaterally Cardiovascular exam: Regular rate and rhythm, no systolic murmur Abdominal exam: Soft, nontender, nondistended, positive bowel sounds Extremities exam: No calf tenderness, no pedal edema Present: Skin-no rash, warm, dry, intact Neurological exam: CN II-XII intact, no focal deficits. No facial droop. Normal speech. - Assessment and Plan (1) Altered level of consciousness Current Visit: Yes Status: Acute Assessment and Plan: Improving and almost back to baseline . No focal neurological deficit. Most likely due to hypoglycemia. Neuro check. Fall precaution. CT head with no acute finding. (2) Bradycardia Current Visit: Yes Status: Acute Assessment and Plan: Improved. Could be due to hypothermia. Now improving heart rate. EKG with no acute ST finding. Negative Serial troponin. Keep patient in telemetry low dose BB started. IV fluid given in the ER. Last echocardiogram in 2015. Echocardiogram report-during this admission Impressions: LVEF 55-60%. Moderate concentric left ventricular hypertrophy. Moderate left ventricular diastolic dysfunction. The right ventricle was not well visualized but appeared grossly normal in size and function Mild-moderate mitral regurgitation. No evidence of pulmonary hypertension. Left Ventricular Wall Motion: Rest Echo Findings All wall segments showed normal motion. (3) Hypoglycemia Current Visit: Yes Status: Acute Assessment and Plan: Improved. Blood glucose level high. started lower dose of home insulin. Hemoglobin A1c 9.0. Follow with acid patroller upon discharge. Patient has a history of fluctuating blood glucose level therefore following acid patroller. (4) Leucocytosis Current Visit: Yes Status: Acute Assessment and Plan: Improved. Mild leukocytosis but no fever. On admission patient had hypothermia but denies any systemic sign and symptom. Concern for sepsis but lactate is normal. Blood culture with no growth. Slight high pro calcitonin. No antibiotic at this time as patient does not appear in sepsis . Chest x-ray IMPRESSION: 1. Likely left basilar subsegmental atelectasis versus scarring. 2. Mild enlargement of the cardiopericardial silhouette, likely exaggerated on the basis of AP portable technique. (5) Diabetes Current Visit: Yes Status: Acute Assessment and Plan: Uncontrolled diabetes as per patient with fluctuating blood glucose level. Following acid patroller. Hemoglobin A1c 9.0. Diabetic diet. Now blood glucose level running high therefore increased 25 units daily at bedtime, 12 units Humalog 3 times a day with meal. medium sliding scale coverage. (6) Hypothermia Current Visit: Yes Status: Acute Assessment and Plan: Improved. Unknown etiology. Normal body temperature now. In ER used bear hugger. She presented with low temperature, bradycardia with mild leukocytosis (7) LENNY (obstructive sleep apnea) Current Visit: No Status: Acute Assessment and Plan: Does not wear CPAP. (8) Renal malignant neoplasm Current Visit: No Status: Acute (9) Chronic kidney disease, stage IV (severe) Current Visit: No Status: Chronic Assessment and Plan: Baseline creatinine between 1.5-1.6. Avoid nephrotoxic drug. Patient follows nephrology on OPD basis. Monitor BMP. (10) Fall Current Visit: Yes Status: Acute Assessment and Plan: History of recurrent fall. At present physiotherapy at home. Consulted PT OT and social work supervisor for discharge plan. Recent fall 1 week ago but did not hit head. (11) CAD (coronary artery disease) Current Visit: Yes Status: Acute Assessment and Plan: History of CAD but no active chest pain. Patient had heart catheter almost 4 years ago but no stent placed. Advise for medical management as per patient and family (12) JULIOCESAR (acute kidney injury) Current Visit: Yes Status: Acute Assessment and Plan: Acute on CK D. Gentle hydration started. Trending down creatinine level. Will stop IV fluid. Patient does not appear in volume overloaded. Avoid nephrotoxic drug. (13) Goals of care, counseling/discussion Current Visit: Yes Status: Acute Assessment and Plan: PT OT on board and recommended for inpatient rehabilitation. beam worker on board for placement and will be possible tomorrow on Monday. (14) DVT prophylaxis Current Visit: Yes Status: Acute Assessment and Plan: SCDs - Time Spent with Patient Total time spent is greater than 50% in coordination of care (as documented) at patient's floor/unit and/or counseling patient: 25 - 35 minutes Plan of Care Discussed with: patient Internal Medicine: Result - Labs CBC & Chem 7: 08/26/18 02:50 08/26/18 02:50 Labs: Short CBC 08/26/18 Range/Units 02:50 WBC 6.5 (4.3-11.1) K/mcL Hgb 12.4 (11.5-15.4) g/dL Hct 39.1 (35.3-44.9) % Plt Count 264 (140-400) K/mcL Neutrophils # 3.7 (1.6-8.9) K/mcL BMP 08/26/18 02:50 Sodium 141 Potassium 4.2 Chloride 107 Carbon Dioxide 26 BUN 31 H Creatinine 1.48 H Glucose 98 Calcium 8.6 - ABG Interpretation ABG results: PT/INR, D-dimer PT 11.7 Seconds (9.4-12.1) 08/23/18 17:33 Consult Discharge Plan - Plan Referrals: Portillo Mcmanus MD [Primary Care Provider] - (4) Leucocytosis Qualifiers: Leukocytosis type: unspecified Qualified Code(s): D72.829 - Elevated white blood cell count, unspecified (5) Diabetes Qualifiers: Diabetes mellitus type: type 2 Diabetes mellitus senior care insulin use: with senior care use Diabetes mellitus complication status: with kidney complications Chronic kidney disease stage: stage 4 (severe) (6) Hypothermia Qualifiers: Encounter type: initial encounter Qualified Code(s): T68.XXXA - Hypothermia, initial encounter (8) Renal malignant neoplasm Qualifiers: Laterality: unspecified laterality Qualified Code(s): C64.9 - Malignant neoplasm of unspecified kidney, except renal pelvis (10) Fall Qualifiers: Encounter type: subsequent encounter Qualified Code(s): W19.XXXD - Unspecified fall, subsequent encounter (11) CAD (coronary artery disease) Qualifiers: Coronary Disease-Associated Artery/Lesion type: unspecified vessel or lesion type [place] vs. transplanted heart: koi heart Associated angina: without angina Qualified Code(s): I25.10 - Atherosclerotic heart disease of koi coronary artery without angina pectoris
[2018-08-26] MEDS ORDERED: Insulin DETEMIR 100 UNIT/ML X5UNITS SQ SCH (21:00)
[2018-08-27 07:50] LABS: Calcium 8.6 mg/dL (8.6-10.3); Potassium 4.3 mEq/L (3.5-5.1)
[2018-08-27] MEDS: Cholecalciferol (D-3) 1,000 UNIT TABLET PO SCH (08:33)
[2018-08-27] MEDS: Aspirin 81 MG TAB.CHEW PO SCH (08:33)
[2018-08-27] MEDS: Multivit/Ca/Min/Fe/FA 1 TAB TABLET PO SCH (08:33)
[2018-08-27] MEDS: Isosorbide MONOnitrate (24 HR) 30 MG TAB.ER.24H PO SCH (08:33)
[2018-08-27] MEDS: Insulin LISPRO 300 UNITS/3 ML VIAL SQ SCH ×6 (08:33→16:14)
[2018-08-27 12:01] VITALS: BP 127/59
--- NOTE | 2018-08-27 12:24 | Discharge Summary ---
- NOTES TO OUTPATIENT PROVIDER Notes to Outpatient Provider: Hypoglycemia so Levemir decreased from 40 to 25 Date of Encounter: 08/27/18 Time of Encounter: 12:21 Hospital course: Dear Doctors, I recently had the opportunity to care for this patient during their recent hospital stay at [facility]. Trisha Marcano is a 78 F w hx DM2, HTN, CAD, DVT, renal cell carcinoma s/p nephrectomy c/b CKD4, who presented at time of admission with confusion. Pt was talking to her son on the phone and she seemed confused, and thus he drove over to her house where he found her on the ground. EMS called. Glucose was 40s, heart rate 40s, and temp 91'F. Given fluids, glucose, and warming blanket, and admitted for further management. In the hospital, patient mental status improved with conservative management as noted above. Propranolol discontinued. Levemir dose decreased from 40 to 25. PT/OT rec'd discharge to SNF and this has been arranged. Dx: hypoglycemia, bradycardia, hypothermia Follow up: PCP 1 week Tests pending: none Med changes: - stop propranolol - decrease Levemir from 40 qhs to 25 qhs Mental status: awake, fully oriented Code status: Tool Engineer spent on discharge: 35 minutes It has been my pleasure participating in this patient's care. Please contact me with any questions or concerns regarding their hospital stay. Sincerely, Jermaine Aguirre MD - Discharge Medications Prescriptions: Continued Furosemide [Lasix] 40 mg PO DAILY Clopidogrel [Plavix] 75 mg PO DAILY Aspirin 81 mg PO DAILY Insulin ASPART [Novolog Flexpen] 12 unit SQ TIDWM Glucosamine/D3/Boswellia Harriet [Osteo Bi-Flex Tablet] 1 each PO DAILY Isosorbide MONOnitrate (24 HR) [Imdur] 30 mg PO DAILY #30 tab.er.24h Nitroglycerin 0.4 mg SL Q5MIN PRN #3 tab.subl PRN Reason: Chest Pain Atorvastatin [Lipitor] 40 mg PO DAILY Calcitriol [Rocaltrol] 0.25 mcg PO DAILY Cholecalciferol (D-3) [Vitamin D] 1,000 unit PO DAILY DULoxetine [Cymbalta] 30 mg PO DAILY Multivitamin [Daily Multiple Vitamin] 1 each PO DAILY Changed Insulin DETEMIR [Levemir Flextouch] 25 unit SQ HS #0 Discontinued Propranolol HCl 40 mg PO BID Home Medications: Aspirin 81 mg PO DAILY 02/10/16 [History] Clopidogrel [Plavix] 75 mg PO DAILY 02/10/16 [History] Furosemide [Lasix] 40 mg PO DAILY 02/10/16 [History] Glucosamine/D3/Boswellia Harriet [Osteo Bi-Flex Tablet] 1 each PO DAILY 02/10/16 [History] Insulin ASPART [Novolog Flexpen] 12 unit SQ TIDWM 02/10/16 [History] Isosorbide MONOnitrate (24 HR) [Imdur] 30 mg PO DAILY #30 tab.er.24h 02/13/16 [Rx] Nitroglycerin 0.4 mg SL Q5MIN PRN #3 tab.subl 02/13/16 [Rx] Atorvastatin [Lipitor] 40 mg PO DAILY 08/23/18 [History] Calcitriol [Rocaltrol] 0.25 mcg PO DAILY 08/23/18 [History] Cholecalciferol (D-3) [Vitamin D] 1,000 unit PO DAILY 08/23/18 [History] DULoxetine [Cymbalta] 30 mg PO DAILY 08/23/18 [History] Multivitamin [Daily Multiple Vitamin] 1 each PO DAILY 08/23/18 [History] Insulin DETEMIR [Levemir Flextouch] 25 unit SQ HS #0 08/27/18 [Rx] Allergies/Adverse Reactions: Allergy/AdvReac Type Severity Reaction Status Date / Time No Known Allergies Allergy Verified 02/10/16 16:25 Date of admission: 08/24/18 17:13 Primary care physician: Portillo Mcmanus Consults: 08/23/18 17:20 Consult to Occupational Therapy [CONS] Routine Comment: Evaluate, develop and implement POC Reason for Consult: Generalized weakness Does patient have active BEDREST order?: No Is patient medically & hemodynamically stable?: Yes Patient assessed for mobility or mobilized this visit?: No Consult to Physical Therapy [CONS] Routine Comment: Evaluate, develop and implement POC Reason for Consult: Generalized weakness Does patient have active BEDREST order?: No Is patient medically & hemodynamically stable?: Yes Patient assessed for mobility or mobilized this visit?: No Consult to Underground Foreman [CONS] Routine Reason for SW Consult: Discharge plan - Constitutional Vitals: Temp Pulse Resp BP Pulse Ox 98.3 F 71 14 127/59 96 08/27/18 11:54 08/27/18 11:54 08/27/18 11:54 08/27/18 11:54 08/27/18 11:54 Exam: General: NAD, good eye contact, well appearing, elderly Thoracic: Normal breath sounds b/l, no wheezing or crackles Cardio: Normal S1 and S2, regular rhythm, bradycardic Abdomen: Soft, nontender Extremities: Warm, well perfused. DP pulses 2+ b/l. No edema. Skin: Intact. No rashes, bruises, or ulcers Neuro: Awake, fully oriented. Speech fluent - Patient Status Disposition: Transfer SNF Condition: Fair Functional capacity at discharge: uses cane/walker Overall status at discharge: patient is progressing back to baseline - Discharge Instructions Follow Up With: Portillo Mcmanus MD [Primary Care Provider] - - Diet and Activity Activity: increase activity as tolerated Diet: advance to your usual diet, diabetic diet
--- NOTE | 2018-08-27 12:27 | Physician Discharge Referral ---
ExtendedCare Referral Info Transfer To: SNF Provider in Charge after Transfer: PCP Institutional Level of Care: Skilled - Transfer Medications Home Medications: Aspirin 81 mg PO DAILY 02/10/16 [History] Clopidogrel [Plavix] 75 mg PO DAILY 02/10/16 [History] Furosemide [Lasix] 40 mg PO DAILY 02/10/16 [History] Glucosamine/D3/Boswellia Harriet [Osteo Bi-Flex Tablet] 1 each PO DAILY 02/10/16 [History] Insulin ASPART [Novolog Flexpen] 12 unit SQ TIDWM 02/10/16 [History] Insulin DETEMIR [Levemir Flextouch] 40 unit SQ HS 02/10/16 [History] Isosorbide MONOnitrate (24 HR) [Imdur] 30 mg PO DAILY #30 tab.er.24h 02/13/16 [Rx] Nitroglycerin 0.4 mg SL Q5MIN PRN #3 tab.subl 02/13/16 [Rx] Atorvastatin [Lipitor] 40 mg PO DAILY 08/23/18 [History] Calcitriol [Rocaltrol] 0.25 mcg PO DAILY 08/23/18 [History] Cholecalciferol (D-3) [Vitamin D] 1,000 unit PO DAILY 08/23/18 [History] DULoxetine [Cymbalta] 30 mg PO DAILY 08/23/18 [History] Multivitamin [Daily Multiple Vitamin] 1 each PO DAILY 08/23/18 [History] Allergies/Adverse Reactions: Allergy/AdvReac Type Severity Reaction Status Date / Time No Known Allergies Allergy Verified 02/10/16 16:25 - Respiratory Orders Smoking Cessation: Smoking cessation has been advised. For more information, call the [place] Tobacco Quit Line at 7-241-GJAN-NOW. - Ancillary Orders May use pressure relief devices daily prn, May go on KRISSY w/family/respon green party w/meds at nurse discretion PRN, May consult with Dentist, Staff Air Defense Officer, Public Safety Teacher PRN - Advance Directives Code Status: Full Code - Mobility Orders Ambulate - Rehabiliation Orders Rehab Potential: Good Rehab Orders: Evaluation for Physical Therapy, Evaluation for Occupational Therapy - Treatments Skin tear care topically daily PRN per policy - Diet Orders No Concentrated Sweets CERTIFICATION: I certify that the transfer of the above named patient to an Extended Care Facility is necessary for the continuing treatment of the diagnosis listed. The above information is true and accurate reflection of patient's current condition. Confidential - Redisclosure prohibited without a patient's written consent.
== END 2018-08-27 18:17 | DRG 639 ==
LOC: 2NENU 13:07 → EMEROOARM 13:07 → 2NENU 20:54 → SUATTDRO 08-24 17:13
PROVIDERS: ADMIT Internal Medicine Nephrology; ATTEND Internal Medicine

== ENCOUNTER 2019-11-28 11:01 | Inpatient (IN) ==
[2019-11-28] MEDS ORDERED: 0.9 % Sodium Chloride 1,000 ML IVC ONE ×2 (11:09→12:30)
[2019-11-28] MEDS ORDERED: Tdap (Boostrix) Vaccine 0.5 ML SYRINGE IM ONE (11:10)
[2019-11-28 11:37] LABS: Prothrombin Time 11.3 Seconds (9.4-12.1)
[2019-11-28 11:38] LABS: Basophils % 0.2 %; Hematocrit 30.8 % (35.3-44.9); Immature Granulocytes % 0.5 % (0-4); Lymphocytes # 0.6 K/mcL (0.6-4.6); Lymphocytes % 4.2 %; Mean Corpuscular HGB Conc 32.5 g/dL (31.6-35.5); Mean Corpuscular Hemoglobin 28.9 pg (28.0-33.3); Monocytes # 0.7 K/mcL (0.0-1.3); Monocytes % 5.6 %; Neutrophils # 11.9 K/mcL (1.6-8.9); Platelet Count 381 K/mcL (140-400); Red Blood Count 3.46 M/mcL (3.82-4.97); Red Cell Distribution Width 12.6 % (11.5-14.5); Segmented Neutrophils % 89.5 %; White Blood Count 13.2 K/mcL (4.3-11.1)
[2019-11-28 11:40] LABS: Activated Partial Thrombo Time 25.9 Seconds (26.0-36.0)
[2019-11-28 11:51] LABS: Amphetamine Screen,Urine Negative ng/mL (Cutoff=1000); Bacteria,Urine Few per hpf (None-Few); Barbiturate Screen,Urine Negative ng/mL (Cutoff=200); Benzodiazepines Screen,Urine Negative ng/mL (Cutoff=200); Bilirubin,Urine Negative (Negative); Blood,Urine Negative (Negative); Budding Yeast,Urine Moderate per hpf (None Seen); Cannabinoid Screen,Urine Negative ng/mL (Cutoff = 50); Clarity,Urine Clear (Clear); Cocaine Screen,Urine Negative ng/mL (Cutoff= 300); Color,Urine Light-Yellow (Yellow); Glucose,Urine (UA) >=1000 mg/dL (Normal); Ketones,Urine Negative (Negative); Leukocyte Esterase,Urine Negative (Negative); Nitrite,Urine Positive (Negative); Opiate Screen,Urine Negative ng/mL (Cutoff=300); Phencyclidine Screen,Urine Negative ng/mL (Cutoff=25); Protein,Urine Negative (Neg-Trace); RBC,Urine 0-3 per hpf (0-3); Specific Gravity,Urine 1.022 (1.010-1.025); Squamous Epithelial Cell,Urine Few per hpf (None-Few); Urobilinogen,Urine Normal (Normal); WBC,Urine 0-3 per hpf (0-3)
[2019-11-28 12:04] LABS: Alanine Aminotransferase 16 Units/L (7-52); Albumin 3.8 g/dL (3.5-5.7); Albumin/Globulin Ratio 1.4 (1.1-2.2); Alkaline Phosphatase 87 Units/L (34-104); Aspartate Amino Transferase 16 Units/L (13-39); BUN/Creatinine Ratio 38 (6-26); Bilirubin,Direct 0.2 mg/dL (0.0-0.2); Bilirubin,Indirect 0.7 mg/dL (0.0-1.0); Bilirubin,Total 0.9 mg/dL (0.3-1.0); Blood Urea Nitrogen 105 mg/dL (8-23); Calcium 8.7 mg/dL (8.6-10.3); Carbon Dioxide 23 mEq/L (23-29); Chloride 88 mEq/L (98-107); Ethanol < 10 mg/dL (Less than 10); Globulin 2.8 g/dL (2.4-3.5); Osmolality,Calculated 340 (280-300); Potassium 4.8 mEq/L (3.5-5.1); Sodium 125 mEq/L (136-145); Total Protein 6.6 g/dL (6.4-8.9); eGFR For African Americans 20 (> 60); eGFR For Non-African Americans 17 (> 60)
[2019-11-28 12:08] LABS: Glucose 937 mg/dL (70-105)
[2019-11-28] MEDS ORDERED: cefTRIAXone 1,000 MG in 0.9 % Sodium Chloride Mini Bag 100 ML IVPB ONE (12:23)
[2019-11-28 12:26] LABS: Troponin I 0.15 ng/mL (< 0.04)
[2019-11-28] MEDS ORDERED: Insulin Human Regular 100 UNIT in 0.9 % Sodium Chloride 100 ML IVC SCH ×2 (12:30→22:00)
[2019-11-28 12:38] LABS: Thyroid Stimulating Hormone 1.215 mcIU/mL (0.340-5.600)
[2019-11-28] MEDS ORDERED: *HR* Dextrose 50 % in Water (Vial) 50 ML VIAL IVP PRN (14:03)
[2019-11-28] MEDS ORDERED: D5% in 0.45% NACL 1,000 ML IVC PRN (14:03)
[2019-11-28] MEDS ORDERED: 0.45 % Sodium Chloride w/KCl 20 MEQ/1,000 ML MLS IVC SCH (14:15)
[2019-11-28] MEDS ORDERED: Ondansetron 4 MG/2 ML VIAL IVP PRN (14:23)
[2019-11-28] MEDS ORDERED: Naloxone 0.4 MG/ML INJ IVP PRN (14:23)
[2019-11-28 15:08] LABS: ABG Base Excess 0 mEq/L (-2 to 3); ABG HCO3 25 mEq/L (21-27); ABG Oxygen Saturation 97 % (95-98); ABG PCO2 41 mmHg (35-45); ABG PH 7.39 pH Units (7.32-7.45); ABG PO2 87 mmHg (85-104); ABG TCO2 26 mEq/L (20-26)
[2019-11-28 15:21] LABS: Calcium 8.9 mg/dL (8.6-10.3); Magnesium 2.4 mg/dL (1.6-2.6); Phosphorous 4.1 mg/dL (2.7-4.5); Potassium 4.4 mEq/L (3.5-5.1)
[2019-11-28 15:27] LABS: C-Reactive Protein < 5 mg/L (Less than 10)
[2019-11-28] MEDS ORDERED: haloperidoL 1 MG TABLET PO PRN (15:38)
[2019-11-28] MEDS ORDERED: *HR* Heparin 5,000 UNIT/ML VIAL SQ SCH (18:00)
[2019-11-28 18:26] LABS: Calcium 8.4 mg/dL (8.6-10.3); Potassium 4.5 mEq/L (3.5-5.1)
[2019-11-28] MEDS: D5% in 0.45% NACL w KCl 20 MEQ/1,000 ML MLS IVC PRN (21:35)
[2019-11-28 23:09] LABS: Potassium 3.6 mEq/L (3.5-5.1)
[2019-11-28] MEDS ORDERED: Heparin 25,000UNIT/250ML 1/2NS 25,000 UNIT/250 ML IV.SOLN IVC SCH (23:45)
[2019-11-28] MEDS ORDERED: *HR* Heparin 5,000 UNIT/ML VIAL IVP PRN ×2 (23:46)
[2019-11-28] MEDS ORDERED: *HR* Heparin 5,000 UNIT/ML VIAL IVP ONE (23:46)
[2019-11-29] MEDS: D5% in 0.45% NACL w KCl 20 MEQ/1,000 ML MLS IVC PRN (01:41)
[2019-11-29] MEDS ORDERED: Insulin DETEMIR 100 UNIT/ML X5UNITS SQ ONE (02:34)
[2019-11-29] MEDS ORDERED: D5% in Water 1,000 ML IVC PRN ×2 (02:35→04:17)
[2019-11-29] MEDS ORDERED: Dextrose Gel 15 GM/37.5 ML TUBE PO PRN ×3 (02:35→04:17)
[2019-11-29] MEDS ORDERED: *HR* Dextrose 50 % in Water (Vial) 50 ML VIAL IVP PRN (02:35)
[2019-11-29 03:12] LABS: Basophils % 0.1 %; Eosinophils % 0.1 %; Hematocrit 25.2 % (35.3-44.9); Immature Granulocytes % 0.5 % (0-4); Lymphocytes # 1.5 K/mcL (0.6-4.6); Lymphocytes % 14.4 %; Mean Corpuscular HGB Conc 33.3 g/dL (31.6-35.5); Mean Corpuscular Hemoglobin 29.4 pg (28.0-33.3); Mean Corpuscular Volume 88.1 fL (83.0-100.0); Mean Platelet Volume 9.7 fL (9.4-12.4); Monocytes # 1.4 K/mcL (0.0-1.3); Monocytes % 13.7 %; Neutrophils # 7.4 K/mcL (1.6-8.9); Platelet Count 333 K/mcL (140-400); Red Blood Count 2.86 M/mcL (3.82-4.97); Red Cell Distribution Width 12.8 % (11.5-14.5); Segmented Neutrophils % 71.2 %; White Blood Count 10.4 K/mcL (4.3-11.1)
[2019-11-29 03:17] LABS: Albumin 3.2 g/dL (3.5-5.7); Albumin/Globulin Ratio 1.3 (1.1-2.2); Bilirubin,Total 0.4 mg/dL (0.3-1.0); Calcium 7.8 mg/dL (8.6-10.3); Globulin 2.4 g/dL (2.4-3.5); Potassium 3.9 mEq/L (3.5-5.1); Total Protein 5.6 g/dL (6.4-8.9)
[2019-11-29 03:22] LABS: Hemoglobin 8.4 g/dL (11.5-15.4)
[2019-11-29 03:28] LABS: Prothrombin Time 11.1 Seconds (9.4-12.1)
[2019-11-29 03:30] LABS: Heparin anti-factor XA UFH 1.13 IU/mL (0.30-0.70)
[2019-11-29] MEDS: Insulin LISPRO 300 UNITS/3 ML VIAL SQ SCH ×5 (04:51→17:03)
[2019-11-29] MEDS ORDERED: Insulin LISPRO 300 UNITS/3 ML VIAL SQ SCH (06:00)
[2019-11-29 07:04] LABS: Hematocrit 24.8 % (35.3-44.9)
[2019-11-29] MEDS: Isosorbide MONOnitrate (24 HR) 30 MG TAB.ER.24H PO SCH (08:28)
[2019-11-29] MEDS: calcitrioL 0.25 MCG CAPSULE PO SCH (08:28)
[2019-11-29] MEDS: Aspirin 81 MG TAB.CHEW PO SCH (08:28)
[2019-11-29] MEDS: cefTRIAXone 1,000 MG in Water for inj. (sterile) 10 ML IVP SCH (08:28)
[2019-11-29] MEDS: Cholecalciferol (D-3) 1,000 UNIT (25MCG) TABLET PO SCH (08:28)
[2019-11-29] MEDS ORDERED: Perflutren Lipid Microsphere 1.3 ML in 0.9 % Sodium Chloride 8.7 ML IVP PRN (12:01)
[2019-11-29 16:00] LABS: Estimated Average Glucose 306 mg/dl
[2019-11-29 17:29] LABS: Hematocrit 24.5 % (35.3-44.9); Hemoglobin 7.9 g/dL (11.5-15.4)
[2019-11-29] MEDS: Insulin DETEMIR 100 UNIT/ML X5UNITS SQ SCH (19:54)
[2019-11-29] MEDS: Pantoprazole 40 MG VIAL IVP SCH (19:54)
[2019-11-29 22:18] LABS: Basophils % 0.2 %; Eosinophils % 0.4 %; Hematocrit 21.8 % (35.3-44.9); Hemoglobin 7.1 g/dL (11.5-15.4); Immature Granulocytes % 2.1 % (0-4); Lymphocytes # 2.3 K/mcL (0.6-4.6); Lymphocytes % 25.5 %; Mean Corpuscular HGB Conc 32.6 g/dL (31.6-35.5); Mean Corpuscular Hemoglobin 29.3 pg (28.0-33.3); Mean Corpuscular Volume 90.1 fL (83.0-100.0); Mean Platelet Volume 9.6 fL (9.4-12.4); Monocytes # 0.8 K/mcL (0.0-1.3); Monocytes % 9.1 %; Neutrophils # 5.6 K/mcL (1.6-8.9); Nucleated Red Blood Cells 0.4 /100 WBC (0); Platelet Count 276 K/mcL (140-400); Red Blood Count 2.42 M/mcL (3.82-4.97); Red Cell Distribution Width 13.3 % (11.5-14.5); Segmented Neutrophils % 62.7 %; White Blood Count 8.9 K/mcL (4.3-11.1)
[2019-11-30 01:41] LABS: Hematocrit 22.8 % (35.3-44.9); Hemoglobin 7.3 g/dL (11.5-15.4); Mean Corpuscular Hemoglobin 28.6 pg (28.0-33.3); Mean Corpuscular Volume 89.4 fL (83.0-100.0); Mean Platelet Volume 9.5 fL (9.4-12.4); Platelet Count 292 K/mcL (140-400); Red Blood Count 2.55 M/mcL (3.82-4.97); Red Cell Distribution Width 13.3 % (11.5-14.5); White Blood Count 8.7 K/mcL (4.3-11.1)
[2019-11-30 02:00] LABS: Calcium 7.5 mg/dL (8.6-10.3); Potassium 3.8 mEq/L (3.5-5.1)
[2019-11-30] MEDS: Pantoprazole 40 MG VIAL IVP SCH ×2 (05:29→17:10)
[2019-11-30] MEDS: Cholecalciferol (D-3) 1,000 UNIT (25MCG) TABLET PO SCH (08:16)
[2019-11-30] MEDS: calcitrioL 0.25 MCG CAPSULE PO SCH (08:17)
[2019-11-30] MEDS: Isosorbide MONOnitrate (24 HR) 30 MG TAB.ER.24H PO SCH (08:17)
[2019-11-30] MEDS: Insulin LISPRO 300 UNITS/3 ML VIAL SQ SCH ×7 (08:17→21:32)
[2019-11-30] MEDS: Aspirin 81 MG TAB.CHEW PO SCH (08:17)
[2019-11-30] MEDS: cefTRIAXone 1,000 MG in Water for inj. (sterile) 10 ML IVP SCH (08:18)
[2019-11-30 09:18] LABS: Bilirubin,Direct 0.1 mg/dL (0.0-0.2); Bilirubin,Indirect 0.3 mg/dL (0.0-1.0); Bilirubin,Total 0.4 mg/dL (0.3-1.0)
[2019-11-30 09:35] LABS: Basophils % 0.3 %; Eosinophils # 0.1 K/mcL (0.0-0.6); Eosinophils % 1.1 %; Hematocrit 25.9 % (35.3-44.9); Hemoglobin 8.2 g/dL (11.5-15.4); Immature Granulocytes % 2.5 % (0-4); Lymphocytes # 2.6 K/mcL (0.6-4.6); Lymphocytes % 24.4 %; Mean Corpuscular HGB Conc 31.7 g/dL (31.6-35.5); Mean Corpuscular Hemoglobin 28.3 pg (28.0-33.3); Mean Corpuscular Volume 89.3 fL (83.0-100.0); Mean Platelet Volume 9.6 fL (9.4-12.4); Monocytes # 0.9 K/mcL (0.0-1.3); Monocytes % 8.1 %; Neutrophils # 6.9 K/mcL (1.6-8.9); Nucleated Red Blood Cells 0.7 /100 WBC (0); Platelet Count 315 K/mcL (140-400); Red Cell Distribution Width 13.3 % (11.5-14.5); Segmented Neutrophils % 63.6 %; White Blood Count 10.8 K/mcL (4.3-11.1)
[2019-11-30] MEDS ORDERED: *HR* Midazolam HCl 5 MG/5 ML VIAL IVP ONE ×2 (13:29→13:32)
[2019-11-30] MEDS ORDERED: *HR* FentaNYL (PF) 100 MCG/2 ML VIAL ONE (13:29)
[2019-11-30] MEDS ORDERED: Simethicone 40 MG/0.6 ML MLS IR ONE (13:32)
[2019-11-30] MEDS ORDERED: Tetracaine/Benzocaine/Butamben 1 SPRAY AEROSOL MM ONE (13:32)
[2019-11-30] MEDS ORDERED: *HR* FentaNYL (PF) 100 MCG/2 ML VIAL IVP ONE (13:32)
[2019-11-30] MEDS ORDERED: Pantoprazole 40 MG VIAL IVP SCH (18:33)
[2019-11-30] MEDS: Insulin DETEMIR 100 UNIT/ML X5UNITS SQ SCH (21:32)
[2019-12-01] MEDS: Pantoprazole 40 MG VIAL IVP SCH ×2 (04:53→16:57)
[2019-12-01] MEDS: Insulin LISPRO 300 UNITS/3 ML VIAL SQ SCH ×7 (09:36→21:14)
[2019-12-01] MEDS: Cholecalciferol (D-3) 1,000 UNIT (25MCG) TABLET PO SCH (09:37)
[2019-12-01] MEDS: Aspirin 81 MG TAB.CHEW PO SCH (09:38)
[2019-12-01] MEDS: levoFLOXacin 750 MG TABLET PO SCH (09:38)
[2019-12-01] MEDS: Isosorbide MONOnitrate (24 HR) 30 MG TAB.ER.24H PO SCH (09:38)
[2019-12-01] MEDS: calcitrioL 0.25 MCG CAPSULE PO SCH (09:38)
[2019-12-01 10:27] LABS: Hematocrit 27.4 % (35.3-44.9); Hemoglobin 8.6 g/dL (11.5-15.4); Mean Corpuscular HGB Conc 31.4 g/dL (31.6-35.5); Mean Corpuscular Hemoglobin 28.3 pg (28.0-33.3); Mean Corpuscular Volume 90.1 fL (83.0-100.0); Mean Platelet Volume 9.4 fL (9.4-12.4); Platelet Count 312 K/mcL (140-400); Red Blood Count 3.04 M/mcL (3.82-4.97); Red Cell Distribution Width 13.6 % (11.5-14.5); White Blood Count 10.5 K/mcL (4.3-11.1)
[2019-12-01 10:46] LABS: Calcium 7.8 mg/dL (8.6-10.3); Potassium 4.2 mEq/L (3.5-5.1)
[2019-12-01 13:32] LABS: Folate > 22.3 ng/mL (3.0-16.0); Vitamin B12 413 pg/mL (250-1100)
[2019-12-01] MEDS: Insulin DETEMIR 100 UNIT/ML X5UNITS SQ SCH (21:13)
[2019-12-01] MEDS: *HR* LORazepam 0.5 MG TABLET PO PRN (22:49)
[2019-12-02] MEDS: Pantoprazole 40 MG VIAL IVP SCH ×2 (05:13→17:14)
[2019-12-02] MEDS: Cholecalciferol (D-3) 1,000 UNIT (25MCG) TABLET PO SCH (08:16)
[2019-12-02] MEDS: calcitrioL 0.25 MCG CAPSULE PO SCH (08:16)
[2019-12-02] MEDS: Insulin LISPRO 300 UNITS/3 ML VIAL SQ SCH ×7 (08:16→21:28)
[2019-12-02] MEDS: Aspirin 81 MG TAB.CHEW PO SCH (08:16)
[2019-12-02] MEDS: Isosorbide MONOnitrate (24 HR) 30 MG TAB.ER.24H PO SCH (08:16)
[2019-12-02] MEDS: levoFLOXacin 750 MG TABLET PO SCH (08:16)
[2019-12-02 10:59] LABS: Basophils # 0.1 K/mcL (0.0-0.2); Basophils % 0.5 %; Eosinophils # 0.2 K/mcL (0.0-0.6); Eosinophils % 1.5 %; Hematocrit 26.8 % (35.3-44.9); Hemoglobin 8.5 g/dL (11.5-15.4); Immature Granulocytes % 3.8 % (0-4); Lymphocytes # 1.9 K/mcL (0.6-4.6); Lymphocytes % 19.3 %; Mean Corpuscular HGB Conc 31.7 g/dL (31.6-35.5); Mean Corpuscular Hemoglobin 29.5 pg (28.0-33.3); Mean Corpuscular Volume 93.1 fL (83.0-100.0); Mean Platelet Volume 9.8 fL (9.4-12.4); Monocytes # 0.7 K/mcL (0.0-1.3); Monocytes % 7.1 %; Neutrophils # 6.6 K/mcL (1.6-8.9); Nucleated Red Blood Cells 1.6 /100 WBC (0); Platelet Count 304 K/mcL (140-400); Red Blood Count 2.88 M/mcL (3.82-4.97); Red Cell Distribution Width 13.9 % (11.5-14.5); Segmented Neutrophils % 67.8 %; White Blood Count 9.8 K/mcL (4.3-11.1)
[2019-12-02 11:17] LABS: Calcium 7.9 mg/dL (8.6-10.3); Potassium 4.2 mEq/L (3.5-5.1)
[2019-12-02] MEDS: *HR* LORazepam 0.5 MG TABLET PO PRN (21:28)
[2019-12-02] MEDS: Insulin DETEMIR 100 UNIT/ML X5UNITS SQ SCH (21:29)
[2019-12-03 01:12] LABS: Hematocrit 24.3 % (35.3-44.9); Hemoglobin 7.8 g/dL (11.5-15.4); Mean Corpuscular HGB Conc 32.1 g/dL (31.6-35.5); Mean Corpuscular Hemoglobin 29.7 pg (28.0-33.3); Mean Corpuscular Volume 92.4 fL (83.0-100.0); Mean Platelet Volume 9.4 fL (9.4-12.4); Platelet Count 267 K/mcL (140-400); Red Blood Count 2.63 M/mcL (3.82-4.97); Red Cell Distribution Width 14.3 % (11.5-14.5); White Blood Count 10.6 K/mcL (4.3-11.1)
[2019-12-03 01:23] LABS: Potassium 4.3 mEq/L (3.5-5.1)
[2019-12-03] MEDS: Pantoprazole 40 MG VIAL IVP SCH (05:14)
[2019-12-03] MEDS: Insulin LISPRO 300 UNITS/3 ML VIAL SQ SCH ×4 (08:15→12:20)
[2019-12-03] MEDS: Aspirin 81 MG TAB.CHEW PO SCH (08:17)
[2019-12-03] MEDS: Isosorbide MONOnitrate (24 HR) 30 MG TAB.ER.24H PO SCH (08:17)
[2019-12-03] MEDS: Cholecalciferol (D-3) 1,000 UNIT (25MCG) TABLET PO SCH (08:17)
[2019-12-03] MEDS: calcitrioL 0.25 MCG CAPSULE PO SCH (08:17)
[2019-12-03 12:36] VITALS: BP 129/60
[2019-12-03] MEDS ORDERED: FLU Vac QV 20-21 (6Month+)/PF 0.5 ML SYRINGE IM ONE (14:04)
[2019-12-04] MEDS ORDERED: levoFLOXacin 750 MG TABLET PO SCH (09:00)
== END 2019-12-03 15:12 | DRG 871 ==
LOC: EMEROOARM 11:01 → SUATTDRO 16:18 → 2NNU 16:18
PROVIDERS: ADMIT Internal Medicine; ATTEND Internal Medicine
PROC: ENDOEBX (2019-11-30 13:00)

== ENCOUNTER 2021-09-09 10:08 | Inpatient (IN) ==
[2021-09-09] MEDS ORDERED: Acetaminophen 650 MG RECTAL SUPP RC PRN (13:49)
[2021-09-09] MEDS ORDERED: *HR* LORazepam 0.5 MG TABLET PO PRN (13:52)
[2021-09-09] MEDS ORDERED: Nitroglycerin 0.4 MG TAB.SUBL SL PRN (13:54)
[2021-09-09] MEDS ORDERED: Bisacodyl 10 MG RECTAL SUPPOSITORY RC PRN (15:00)
[2021-09-09] MEDS: Metoprolol XL (24 HR) Succ 25 MG TAB.ER.24H PO SCH (17:11)
[2021-09-09] MEDS: Furosemide 40 MG TABLET PO SCH (17:11)
[2021-09-09] MEDS: Ondansetron ODT 4 MG TAB.RAPDIS SL PRN (23:30)
[2021-09-10] MEDS: Metoprolol XL (24 HR) Succ 25 MG TAB.ER.24H PO SCH ×2 (05:18→17:17)
[2021-09-10] MEDS: Insulin NPH/REG 70/30 100 UNIT/ML (x5UNIT) SUBQ SCH ×2 (06:57→08:04)
[2021-09-10] MEDS: Furosemide 40 MG TABLET PO SCH ×2 (08:15→17:17)
[2021-09-10] MEDS: Isosorbide MONOnitrate (24 HR) 30 MG TAB.ER.24H PO SCH (08:15)
[2021-09-10] MEDS: Aspirin Enteric Coated 81 MG Tablet PO SCH (08:15)
[2021-09-10] MEDS ORDERED: Bisacodyl 10 MG RECTAL SUPPOSITORY RC SCH (09:00)
[2021-09-11] MEDS: Metoprolol XL (24 HR) Succ 25 MG TAB.ER.24H PO SCH ×2 (05:35→16:16)
[2021-09-11] MEDS: Insulin NPH/REG 70/30 100 UNIT/ML (x5UNIT) SUBQ SCH (07:53)
[2021-09-11] MEDS: Isosorbide MONOnitrate (24 HR) 30 MG TAB.ER.24H PO SCH (07:53)
[2021-09-11] MEDS: Furosemide 40 MG TABLET PO SCH ×2 (07:53→16:16)
[2021-09-11] MEDS: Aspirin Enteric Coated 81 MG Tablet PO SCH (07:53)
[2021-09-11] MEDS: Ondansetron ODT 4 MG TAB.RAPDIS SL PRN (11:35)
[2021-09-12] MEDS: Metoprolol XL (24 HR) Succ 25 MG TAB.ER.24H PO SCH ×2 (06:23→16:39)
[2021-09-12] MEDS: Insulin NPH/REG 70/30 100 UNIT/ML (x5UNIT) SUBQ SCH (07:37)
[2021-09-12] MEDS: Isosorbide MONOnitrate (24 HR) 30 MG TAB.ER.24H PO SCH (07:49)
[2021-09-12] MEDS: Furosemide 40 MG TABLET PO SCH ×2 (07:49→16:39)
[2021-09-12] MEDS: Aspirin Enteric Coated 81 MG Tablet PO SCH (07:49)
[2021-09-13] MEDS: Metoprolol XL (24 HR) Succ 25 MG TAB.ER.24H PO SCH ×2 (06:16→16:53)
[2021-09-13] MEDS: Furosemide 40 MG TABLET PO SCH ×2 (09:29→16:53)
[2021-09-13] MEDS: Isosorbide MONOnitrate (24 HR) 30 MG TAB.ER.24H PO SCH (09:29)
[2021-09-13] MEDS: Aspirin Enteric Coated 81 MG Tablet PO SCH (09:29)
[2021-09-13] MEDS: Insulin NPH/REG 70/30 100 UNIT/ML (x5UNIT) SUBQ SCH (09:30)
[2021-09-14] MEDS: Metoprolol XL (24 HR) Succ 25 MG TAB.ER.24H PO SCH (05:57)
[2021-09-14 08:08] VITALS: BP 130/77; PULSE 73; TEMP 98.2; O2SAT 96
[2021-09-14] MEDS: Aspirin Enteric Coated 81 MG Tablet PO SCH (08:53)
[2021-09-14] MEDS: Isosorbide MONOnitrate (24 HR) 30 MG TAB.ER.24H PO SCH (08:53)
[2021-09-14] MEDS: Insulin NPH/REG 70/30 100 UNIT/ML (x5UNIT) SUBQ SCH (08:54)
[2021-09-14] MEDS: Furosemide 40 MG TABLET PO SCH (08:54)
[2021-09-14] MEDS: Ondansetron ODT 4 MG TAB.RAPDIS SL PRN (13:27)
== END 2021-09-14 13:56 | disposition hospice, home (50) | DRG 951 ==
LOC: 2ANU 12:31
PROVIDERS: ADMIT Internal Medicine Hospice and Palliative Medicine; ATTEND Internal Medicine Hospice and Palliative Medicine